=== PATIENT | male | born 1975 | race African-American/Black ===

== ENCOUNTER 2017-04-03 11:16 | Emergency (ER) | payer SELFPAY ==
[~2017-04-03 11:16] MED LIST: CHLO.12%30 SSP; CLIN150 PO; CLIN1CAP6 PO
[2017-04-03 11:18] VITALS: BP 122/83; PULSE 79; RESP 18; TEMP 98.4; O2SAT 99
[2017-04-03 11:51] VITALS: RESP 17; O2SAT 100
[2017-04-03] MEDS: SODIUM CHLORIDE 0.9% FLUSH 10 ML FLUSH IVF PRN ×2 (11:54→12:27)
[2017-04-03] MEDS ORDERED: SODIUM CHLOR 0.9% 1000 ML INJ 1,000 ML IV ONE ×2 (12:00)
[2017-04-03] MEDS ORDERED: DEXAMETHASONE SOD PHOS 20 MG/5 ML VIAL IV PUSH ONE (12:00)
[2017-04-03] MEDS ORDERED: ONDANSETRON HCL 4 MG/2 ML VIAL IV PUSH ONE (12:00)
[2017-04-03 12:15] LABS: AUTOMATED NEUTROPHIL # 3.7 TH/MM3 (1.8-7.7); BASOPHIL # 0.1 TH/MM3 (0-0.2); BASOPHIL % 0.8 % (0.0-2.0); EOSINOPHIL # 0.2 TH/MM3 (0-0.4); EOSINOPHIL % 2.7 % (0.0-4.0); HEMATOCRIT 42.7 % (39.0-51.0); HEMOGLOBIN 13.9 GM/DL (13.0-17.0); LYMPHOCYTE # 1.9 TH/MM3 (1.0-4.8); MEAN CELL VOLUME 87.4 FL (80.0-100.0); MEAN CORPUSCULAR HEMOGLOBIN 28.5 PG (27.0-34.0); MEAN CORPUSCULAR HGB CONC 32.6 % (32.0-36.0); MEAN PLATELET VOLUME 6.9 FL (7.0-11.0); MONO % 11.2 % (0.0-8.0); MONOCYTE # 0.7 TH/MM3 (0-0.9); NEUT % 56.3 % (16.0-70.0); PLATELET COUNT 307 TH/MM3 (150-450); RED BLOOD COUNT 4.88 MIL/MM3 (4.50-5.90); RED CELL DISTRIBUTION WIDTH 12.8 % (11.6-17.2); WHITE BLOOD COUNT 6.5 TH/MM3 (4.0-11.0)
[2017-04-03] MEDS ORDERED: KETOROLAC TROMETHAMINE 30 MG/ML (IVP) VIAL IV PUSH ONE (12:15)
[2017-04-03 12:23] LABS: PROTHROMBIN TIME - PATIENT 10.4 SEC (9.8-11.6)
--- NOTE | 2017-04-03 12:23 | PD ---
HPI Chief Complaint: Headache Time Seen by Provider: 11:49 Travel History International Travel<30 days: No Contact w/Intl Traveler<30days: No Traveled to known affect area: No History of Present Illness HPI Patient is a 42 year old male who presents to ER with multiple complaints. Patient reports that for the past 3 days, he has been having myalgias, reports that he has been having fever/chills. Reports that his been having episodes of sweating followed by chills. Reports headache with nausea and vomiting with nonproductive cough. Reports that his 7 year old nephew who lives with him was recently seen in the hospital and was diagnosed with the flu and as well as strep throat. Patient reports that he did not receive the flu vaccine this year. Reports concern for possible influenza. Patient reports that everyone at work is sick with similar symptoms. As per pt's headache, patient report mild headache. Reports that he owusu sbeen unable to keep anything down for days. Reports no abdominal pain at this time, just mild abdominal cramping. PFSH Past Medical History Medical History: Denies Significant Hx Diminished Hearing: No Tetanus Vaccination: > 5 Years Influenza Vaccination: No Past Surgical History Surgical History: No Previous Surgery Social History Alcohol Use: Yes (OCC) Tobacco Use: Yes (1/2 PPD) Substance Use: No Allergies-Medications (Allergen,Severity, Reaction): Coded Allergies: No Known Allergies (Verified Adverse Reaction, Unknown, 04/03/17) Reported Meds & Prescriptions Reported Meds & Active Scripts Active No Active Prescriptions or Reported Medications Review of Systems General / Constitutional: Positive: Fever, Chills Eyes: No: Visual changes HENT: No: Headaches Cardiovascular: No: Chest Pain or Discomfort Respiratory: Positive: Cough, No: Shortness of Breath Gastrointestinal: Positive: Nausea, Vomiting, No: Abdominal Pain Genitourinary: No: Dysuria Musculoskeletal: Positive: Myalgias, Arthralgias, No: Pain Skin: No Rash Neurologic: Positive: Headache, No: Weakness, Dizziness, Syncope Psychiatric: No: Depression Endocrine: No: Polydipsia Hematologic/Lymphatic: No: Easy Bruising Physical Exam Narrative GENERAL:Mild distress SKIN: Focused skin assessment warm/dry. HEAD: Atraumatic. Normocephalic. EYES: Pupils equal and round. No scleral icterus. No injection or drainage. ENT: No nasal bleeding or discharge. Mucous membranes pink and moist. NECK: Trachea midline. No JVD. CARDIOVASCULAR: Regular rate and rhythm. No murmur appreciated. RESPIRATORY: No accessory muscle use. Clear to auscultation. Breath sounds equal bilaterally. GASTROINTESTINAL: Abdomen soft, non-tender, nondistended. Hepatic and splenic margins not palpable. MUSCULOSKELETAL: No obvious deformities. No clubbing. No cyanosis. No edema. NEUROLOGICAL: Awake and alert. No obvious cranial nerve deficits. Motor grossly within normal limits. Normal speech. PSYCHIATRIC: Appropriate mood and affect; insight and judgment normal. Data Data Last Documented VS Vital Signs Date Time Temp Pulse Resp B/P (MAP) Pulse Ox O2 Delivery O2 Flow Rate FiO2 04/03/17 13:45 98.0 79 18 109/68 (82) 100 Room Air Orders Orders Complete Blood Count With Diff (04/03/17 11:43) Basic Metabolic Panel (Bmp) (04/03/17 11:43) Prothrombin Time / Inr (Pt) (04/03/17 11:43) Act Partial Throm Time (Ptt) (04/03/17 11:43) Ecg Monitoring (04/03/17 11:43) Iv Access Insert/Monitor (04/03/17 11:43) Oximetry (04/03/17 11:43) Sodium Chloride 0.9% Flush (Ns Flush) (04/03/17 11:45) Influenzae A/B Antigen (04/03/17 11:59) Sodium Chlor 0.9% 1000 Ml Inj (Ns 1000 M (04/03/17 12:00) Dexamethasone Inj (Decadron Inj) (04/03/17 12:00) Ondansetron Inj (Zofran Inj) (04/03/17 12:00) Sodium Chlor 0.9% 1000 Ml Inj (Ns 1000 M (04/03/17 12:00) Ketorolac Inj (Toradol Inj) (04/03/17 12:15) Labs Laboratory Tests Test 04/03/17 11:50 White Blood Count 6.5 TH/MM3 Red Blood Count 4.88 MIL/MM3 Hemoglobin 13.9 GM/DL Hematocrit 42.7 % Mean Corpuscular Volume 87.4 FL Mean Corpuscular Hemoglobin 28.5 PG Mean Corpuscular Hemoglobin Concent 32.6 % Red Cell Distribution Width 12.8 % Platelet Count 307 TH/MM3 Mean Platelet Volume 6.9 FL Neutrophils (%) (Auto) 56.3 % Lymphocytes (%) (Auto) 29.0 % Monocytes (%) (Auto) 11.2 % Eosinophils (%) (Auto) 2.7 % Basophils (%) (Auto) 0.8 % Neutrophils # (Auto) 3.7 TH/MM3 Lymphocytes # (Auto) 1.9 TH/MM3 Monocytes # (Auto) 0.7 TH/MM3 Eosinophils # (Auto) 0.2 TH/MM3 Basophils # (Auto) 0.1 TH/MM3 CBC Comment DIFF FINAL Differential Comment Prothrombin Time 10.4 SEC Prothromb Time International Ratio 1.0 RATIO Activated Partial Thromboplast Time 28.2 SEC Blood Urea Nitrogen 18 MG/DL Creatinine 1.44 MG/DL Random Glucose 95 MG/DL Calcium Level 9.0 MG/DL Sodium Level 139 MEQ/L Potassium Level 4.1 MEQ/L Chloride Level 105 MEQ/L Carbon Dioxide Level 29.9 MEQ/L Anion Gap 4 MEQ/L Estimat Glomerular Filtration Rate 65 ML/MIN MDM Medical Decision Making Medical Screen Exam Complete: Yes Emergency Medical Condition: Yes Medical Record Reviewed: Yes Interpretation(s) Vital Signs Date Time Temp Pulse Resp B/P (MAP) Pulse Ox O2 Delivery O2 Flow Rate FiO2 04/03/17 11:51 17 100 Room Air 04/03/17 11:18 98.4 79 18 122/83 (96) 99 Room Air Differential Diagnosis influenza, pneumonia, viral illness, electrolyte abnormality, dehydration Narrative Course During the course of the patients emergency department visit, the patients history, examination, and differential diagnosis were reviewed with the patient. 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 The patient had an IV access obtained and blood work sent for analysis. The patient was initially provided IVF, IV zofran and IV toradol. The patients laboratory studies were reviewed and remarkable for: CBC & BMP Diagram 04/03/17 11:50 Calcium Level 9.0 Microbiology Date/Time Source Procedure Growth Status 04/03/17 12:30 Nasal Aspirate Influenza Types A,B Antigen (KG) - Final NEGATIVE FOR FLU A AND B ANTIGEN.... Complete Patient reevaluated, patient reports that he is feeling much better at this time. Creatinine is mildly elevated at 1.44, this is most likely due to dehydration as patient reports nausea vomiting for the past few days. Overall, with white blood cell count of 6.5, no shift. Patient is nontoxic appearing on evaluation. Patient with most likely viral syndrome given recent household illness with similar complaints. Patient passed that oral trial while in the emergency room, discussed with him need for hydration. Patient will follow up with his primary care doctor, he will return to the emergency room as needed. Patient thankful for care Diagnosis Primary Impression: Viral illness Patient Instructions: General Instructions Departure Forms: Tests/Procedures, Work Release Enter return to work date: Apr 06, 2017 Additional Instructions: Please drink plenty of fluids Please follow up with your primary care doctor in 2-3 days Return to the ER if symptoms worsen or progress Return to the ER as needed Med/Other Pt SpecificInfo: Prescription(s) given Scripts Ondansetron (Zofran) 4 Mg Tab 4 MG PO Q6HR Y for NAUSEA OR VOMITING, #20 TAB 0 Refills Prov: Betzaida Pappas DO 04/03/17 Disposition: 01 DISCHARGE HOME Condition: Stable Betzaida Pappas DO Apr 03, 2017 12:23
[2017-04-03 12:30] LABS: BICARBONATE 29.9 MEQ/L (21.0-32.0); CREATININE 1.44 MG/DL (0.60-1.30)
[2017-04-03 13:45] VITALS: BP 109/68; PULSE 79; RESP 18; TEMP 98; O2SAT 100
[2017-04-03] MEDS ORDERED: ZOFR4TAB PO (14:18)
[2017-04-03 14:25] VITALS: BP 110/78; TEMP 97.8
== END 2017-04-03 14:25 | disposition home or self-care (01) ==
LOC: NEPD 11:16
DX: B34.9 Viral infection, unspecified (principal); F17.200 Nicotine dependence, unspecified, uncomplicated
CPT/HCPCS: 80048; 85025; 85610; 85730; 87804; 96361; 96374; 96375; 99284; J1100; J1885; J2405; J7030